=== PATIENT | male | born 1990 | race Caucasian/White ===

== ENCOUNTER 2016-07-13 16:24 | Emergency (ER) | payer MEDICAID, OTHER ==
[2016-07-13 16:32] VITALS: BP 124/69; PULSE 72; RESP 16; TEMP 97.3; O2SAT 95
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
== END 2016-07-13 17:11 | disposition left against medical advice (07) ==
DX: Z53.21 Procedure and treatment not carried out due to patient leaving prior to being seen by health care provider (principal)

== ENCOUNTER 2016-07-13 18:44 | Emergency (ER) | payer OTHER, MEDICAID ==
[2016-07-13 18:48] VITALS: RESP 16; TEMP 97.3
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
--- NOTE | 2016-07-13 20:33 | DX ---
Lumbar Spine, Two Views 19:53 Hours Indication: Pain. Trauma. Comparison: None Technique: Upright AP and lateral views. Findings: Five nonrib-bearing lumbar vertebral bodies are anatomically aligned except for minimal de xtrocurvature apex at L3. No compression fracture, disk height loss, or pars defect. Impression: Negative. No acute fracture.
[2016-07-13] MEDS ORDERED: HYDROCOD/APAP 5/325 PREPACK#6 BTL TAKEHOME ONE (20:46)
[2016-07-13 21:16] VITALS: BP 141/67; PULSE 73; O2SAT 96
== END 2016-07-13 21:15 | disposition home or self-care (01) ==
DX: S70.01XA Contusion of right hip, initial encounter (principal); M62.830 Muscle spasm of back; V28.2XXA Unspecified motorcycle rider injured in noncollision transport accident in nontraffic accident, initial encounter

== ENCOUNTER 2016-07-16 20:59 | Emergency (ER) | payer OTHER, MEDICAID ==
[2016-07-16 21:09] VITALS: RESP 16; O2SAT 97
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
[2016-07-16] MEDS ORDERED: HYDROCOD/APAP 5/325 PREPACK#6 BTL TAKEHOME ONE ×2 (23:15→23:16)
[2016-07-16 23:17] VITALS: BP 132/78; PULSE 63; TEMP 97.7
== END 2016-07-16 23:18 | disposition home or self-care (01) ==
DX: S20.219D Contusion of unspecified front wall of thorax, subsequent encounter (principal); V28.5 Motorcycle passenger injured in noncollision transport accident in traffic accident